=== PATIENT | male | born 1935 | race Caucasian/White ===

== ENCOUNTER 2016-07-29 21:31 | Observation (INO) | payer MEDICARE, OTHER ==
--- NOTE | ~2016-07-29 | CN ---
Consultation Report [facility] [address] [place]. [address] NAME: CED PANG : 35 STATUS : ADM Renata PAT#: [id number] AGE: 80 ADM/REG DATE : 07/30/16 MR#: [id number] REPORT SERV DATE: 07/30/16 DICTATED BY: ROCKY ARZATE DATE: 07/30/16 REPORT STATUS : Draft TRANSCRIBED BY: MODL DATE: 07/30/16 INPATIENT CONSULTATION DATE OF CONSULTATION: 07/30/2016 REASON FOR CONSULTATION: Back pain and right leg pain. HISTORY OF PRESENT ILLNESS: The patient is an 80-year-old gentleman, with complaints of intractable back and lower extremity pain. He states that he started having more severe pain approximately a week ago, and then yesterday or the day before had difficulty with ambulating, and felt that his right leg would give out on weightbearing. He also complains of rather severe right-sided knee pain, for which Dr. Arias is following. REVIEW OF SYSTEMS: He denies chest pain, shortness of breath, and bowel or bladder changes. PHYSICAL EXAMINATION: GENERAL: The patient is healthy appearing. In no acute distress. PSYCH: Alert and oriented x3. Normal mood and affect. Gait was not tested. VASCULAR: No extremity swelling. NEUROLOGIC: Strength in lower extremities was 5/5 for the hip flexors, hamstrings, quadriceps, tibialis anterior, EHL, gastrocsoleus, and peroneals. No focal deficits. Sensation is intact to light touch to bilateral lower extremities. IMAGING: I have reviewed the CT scan, as well as x-rays, he does have L2 through S1 disk disease, and stenosis with nerve compression. ASSESSMENT: Lumbar disk disease and stenosis. PLAN: I discussed various options with the patient. I will order physical therapy. I had offered to perform a lumbar epidural steroid injection. He had a negative experience with one of those in the distant past and was somewhat hesitant, so we will hold off on that and see how he does first with physical therapy. He may need inpatient rehab, if he continues to have significant limitations then an epidural injection would be a possibility. He was also not interested in any surgery at this point. I will follow along as needed. REED/KYLER Rocky Arzate, / [phone] Consultation Report [place] [id number] [address] NAME: CED PANG : 35 STATUS : ADM Renata PAT#: [id number] AGE: 80 ADM/REG DATE : 07/30/16 MR#: [id number] REPORT SERV DATE: 07/30/16 DICTATED BY: ROCKY ARZATE DATE: 07/30/16 REPORT STATUS : Draft TRANSCRIBED BY: KYLER DATE: 07/30/16 CC: MD Davi Pickard M.D.
--- NOTE | ~2016-07-29 | DS ---
Discharge Summary [facility] [address] [place]. [address] NAME: CED PANG : 35 STATUS : ADM Renata PAT#: [id number] AGE: 80 ADM/REG DATE : 07/30/16 MR#: [id number] REPORT SERV DATE: 08/01/16 DICTATED BY: DELMER FRY DATE: 08/01/16 REPORT STATUS : Draft TRANSCRIBED BY: MODL DATE: 08/01/16 ADMISSION DATE: 07/30/2016 DISCHARGE DATE: 08/01/2016 REASON FOR ADMISSION: Right leg weakness and gait abnormality. HPI: Please refer to Dr. Godinez's history and physical dated 07/30/2016 for complete details on the patient's admission. In brief, the patient was admitted to the hospitalist service for right leg weakness with gait abnormality. HOSPITAL COURSE: The patient had an uncomplicated hospital course. The patient had a CT scan of his lumbar spine without contrast, which showed evidence for moderately severe bilateral neural foraminal stenosis, L5 through S1. High-grade central canal stenosis, L4 through L5, L3 through L4, L2 through L3, which are essentially stable from 2013 MRI. The patient had a followup MRI done of his lumbar and thoracic spine, which showed evidence for a now stabilized small to moderate right central herniation T8 through T9, posterior stabilization from T8 through T11. There are osteophytes anteriorly at multiple levels. The MRI of his lumbar spine showed persistent canal stenosis L2 through L5. The neural foramina at L5-S1 demonstrates bony stenosis secondary to herniation, osteophytes, and intermittent irritation to the right or left L5 root, which may present clinically. The patient also complained of some knee pain, so we had a knee x-ray done, which showed right knee prosthesis. No acute abnormality. Dr. Arias was consulted regarding his knee and Dr. Arzate was consulted regarding the patient's spinal issues. Dr. Arzate had offered an epidural steroid injection or surgery and the patient had declined both. Physical Therapy had evaluated the patient and recommended inpatient rehab. The patient had a [facility] for [facility], so we had consulted [facility] and they felt that the patient could not get financial or medical approval, so then we consulted [facility] who had approved the patient on Wednesday, but did not have any beds, so we are waiting for a bed to open up. The patient remained in observation status according to Case Management, and the rn case management had a long discussion with the patient on Wednesday, and given that the fact that the patient was responsible for his bill, he is requesting to go home instead of waiting for a possibility of a bed to open up at [facility]. Over time, the patient has been able to do more and more. He is still using a walker, but he is able to bear weight. He was able to take a shower without any assistance. He is stable for discharge back to home and is requesting outpatient physical therapy at the [facility]. We will make arrangements for that. The patient is not wanting to stay in the hospital any further due to worrisome of a hospital bill, and therefore, we are discharging him at his request. DISCHARGE DIAGNOSES: Right leg weakness with gait abnormality, not resolving; severe lumbar spinal stenosis; thrombocytopenia; hypertension; hypokalemia; obstructive sleep apnea, on CPAP; chronic back pain. PROCEDURES: Include CT scan of the lumbar spine without contrast, MRI of the lumbar spine without contrast, and MRI of the thoracic spine without contrast. Consultation with Dr. Arzate, and consultation with Dr. Arias, Physical Therapy. Discharge Summary [address] [address] NAME: CED PANG : 35 STATUS : ADM Renata PAT#: [id number] AGE: 80 ADM/REG DATE : 07/30/16 MR#: [id number] REPORT SERV DATE: 08/01/16 DICTATED BY: DELMER FRY DATE: 08/01/16 REPORT STATUS : Draft TRANSCRIBED BY: KYLER DATE: 08/01/16 DISCHARGE MEDICATIONS: Include aspirin 81 mg once a day; Cartia XT 120 mg once a day; lisinopril/hydrochlorothiazide 20/25 once a day; simvastatin 40 mg at bedtime; Klonopin 2 mg at bedtime; naproxen p.r.n. pain; Percocet 5/325 every six hours as needed for pain, #20 tablets given. We will make arrangements for outpatient PT this. JACKI Delmer Fry MD / [id number] CC: MD Davi Pickard M.D. John Nash, M.D.
--- NOTE | ~2016-07-29 | HP ---
History And Physical [place] [address] [place]. [address] NAME: CED PANG GIST : 35 STATUS : ADM Renata PAT#: [id number] AGE: 80 ADM/REG DATE : 07/30/16 MR#: [id number] REPORT SERV DATE: 07/30/16 DICTATED BY: CED WALTERS DATE: 07/30/16 REPORT STATUS : Draft TRANSCRIBED BY: MODL DATE: 07/30/16 DATE OF ADMISSION: 07/30/2016 POINT OF ENTRY: [facility] Emergency Department. CHIEF COMPLAINT: Right leg weakness and gait abnormality. HISTORY OF PRESENT ILLNESS: Mr. Pang is an 80-year-old gentleman with a history of hypertension, hyperlipidemia, obstructive sleep apnea, as well as chronic lower back pain secondary to degenerative disc disease and spinal stenosis, who presents to the emergency department today with worsening lower back pain as well as inability to walk secondary to inability to bear weight on his right leg. The patient states that he has had chronic issues with lower back pain, has had multiple lumbar back surgeries for degenerative disc disease as well as spinal stenosis. He states that for the past week he has had worsening of his chronic lower back pain with some sciatic component to it. At approximately 7:30 this evening while walking in his house, his right leg gave out from under him and he fell slowly to the ground. Shortly after this occurred the patient's back pain resolves, and in fact, he is not complaining of any pain at this time whatsoever, but he has continued to have an inability to bear any weight on his right leg secondary to weakness, not to pain or discomfort. Initial evaluation in the emergency department is notable for vitals and labs, otherwise unremarkable. Imaging did not reveal any acute fracture or dislocation. CT scan of the L- spine showed moderate to severe multilevel degenerative disc disease with some moderate to severe narrowing of canal, but no evidence of any cord impingement. Attempts to walk the patient were unsuccessful as again he was unable to bear weight on his right leg whatsoever. He was subsequently admitted to the Hospitalist Service for further evaluation and management. REVIEW OF SYSTEMS: Comprehensive review of systems otherwise negative unless listed in history of present illness. PREVIOUS MEDICAL HISTORY: 1. Chronic lower back pain. 2. Degenerative disc disease and spinal stenosis. 3. Hypertension. 4. Hyperlipidemia. 5. Obstructive sleep apnea, on CPAP. 6. Left thigh mass status post resection, determined to be lipoma. SURGICAL HISTORY: 1. Bilateral total knee. 2. Cholecystectomy. 3. Appendectomy. History And Physical [address] [address] NAME: CED PANG : 35 STATUS : ADM Renata PAT#: [id number] AGE: 80 ADM/REG DATE : 07/30/16 MR#: [id number] REPORT SERV DATE: 07/30/16 DICTATED BY: CED WALTERS DATE: 07/30/16 REPORT STATUS : Draft TRANSCRIBED BY: KYLER DATE: 07/30/16 4. Hernia repair. 5. Multiple lumbar back surgeries. ALLERGIES: NO KNOWN DRUG ALLERGIES. HOME MEDICATIONS: 1. Aspirin 81 mg daily. 2. Klonopin 2 mg q.h.s. 3. Diltiazem 120 mg q.h.s. 4. Lisinopril/hydrochlorothiazide 20/25 mg one tablet q.h.s. 5. Naproxen 500 mg b.i.d. p.r.n. 6. Simvastatin 40 mg q.h.s. SOCIAL HISTORY: Denies any tobacco, alcohol, or illicits. FAMILY MEDICAL HISTORY: Mother with history of stroke. Father with cancer and coronary artery disease. Siblings with lung cancer. LABS AND IMAGIN. White count is 6.0, hemoglobin is 15.0, hematocrit 44.4, and platelet count is 128. 2. Sodium is 147, potassium 3.4, chloride 111, carbon dioxide 25, BUN 29, creatinine 1.26, glucose is 104, and calcium is 9.3. 3. CT scan of the lumbar spine shows moderate to severe multilevel degenerative changes of the lower thoracic and lumbar spine, but degenerative changes are most pronounced at L4- L5 and L5-S1 where there is at least moderate to severe narrowing of the bilateral neural foramina secondary to disc bulge, osteophyte formation, and facet arthropathy. 4. Plain films of the knee and hip per my review shows no acute fracture or dislocation. Formal report is pending. PHYSICAL EXAMINATION: VITAL SIGNS: Temperature is 98.5 degrees Fahrenheit, pulse is 90, respirations 20, saturating 96% on room air, and blood pressure is 148/71. GENERAL: The patient is awake and alert, in no acute distress. Resting comfortably in bed. He is a well-developed, well-nourished, elderly male. HEENT: Atraumatic and normocephalic. Moist mucous membranes. Pupils are equal, round, reactive to light and accommodation. Extraocular eye movements are intact. No scleral icterus. NECK: No jugular venous distention. No carotid bruits. CARDIAC: Regular rate and rhythm. No murmurs or gallops. Normal S1, S2. LUNGS: Clear to auscultation bilaterally. No wheezes, rhonchi, or crackles. ABDOMEN: Obese, soft, nontender, and nondistended. Good bowel sounds. No rebound, guarding, or rigidity. EXTREMITIES: Warm and perfused. No cyanosis, clubbing, or edema. SKIN: Warm and dry. PSYCH: Affect appropriate. NEURO: Alert and oriented x3. Cranial nerves 2 through 12 grossly intact. Speech is normal. Gait is not assessed. History And Physical [address] [address] NAME: CED PANG [facility] : 35 STATUS : ADM Renata PAT#: [id number] AGE: 80 ADM/REG DATE : 07/30/16 MR#: [id number] REPORT SERV DATE: 07/30/16 DICTATED BY: CED WALTERS DATE: 07/30/16 REPORT STATUS : Draft TRANSCRIBED BY: KYLER DATE: 07/30/16 MUSCULOSKELETAL: The patient has intact strength and range of movement in bilateral lower extremities. Intact gross sensation as well. ASSESSMENT AND PLAN: Mr. Pang is an 80-year-old gentleman who presents with a week history of worsening chronic lower back pain status post acute onset of inability to bear any weight on his right leg secondary to weakness with resulting gait abnormality. PROBLEM LIST: 1. Right leg weakness with gait abnormality. 2. Chronic lower back pain. 3. Thrombocytopenia. 4. Hypertension. 5. Hypokalemia. PLAN: 1. Right leg weakness with gait abnormality, unclear etiology as to what would cause the patient to be unable to bear weight on his right leg upon standing as he appears to have intact sensation and gross motor strength as well as cerebellar control of his right lower extremity during my neuro exam while supine on the exam bed. A CT scan of the lumbar spine shows multilevel degenerative disc disease, but no obvious acute etiology of the patient's new symptoms. We will admit the patient to Hospitalist Service. Consult the patient's orthopedic surgeon, Dr. Arias, for assistance. Likely will need to see Orthopedics Spine Surgery as well as we will order a thoracic and lumbar MRI to better visualize his known history of spinal stenosis and degenerative disk disease. Also consult Physical Therapy for evaluation. 2. Chronic lower back pain. The patient now denies any chronic lower back pain whatsoever. Again, follow up Orthopedic Surgical consultation as well as MRI imaging of the back. 3. DVT prophylaxis. Lovenox subcu. CODE STATUS: The patient wished to be full code. JCB/MODL Ced Walters MD / [id number] CC: Beni Robin M.D.
[~2016-07-29 21:31] MED LIST: ADVIL PO; ALEVE220 MG PO; AMOXIL500C PO; ASAB PO; CARDCD120 PO; KLONO2 PO; MULTIPLE VIT PO; VICODINTAB PO; ZESTORETIC1 TA1 PO; ZOCOR20 PO; ZOCOR40 PO
[2016-07-30] MEDS ORDERED: ZOCOR40 PO (02:47)
[2016-07-30] MEDS ORDERED: PRINZIDE PO (02:47)
[2016-07-30] MEDS ORDERED: CARTIA XT120 MG/24 PO (02:48)
[2016-07-30] MEDS ORDERED: NAP500 PO (02:48)
[2016-07-30] MEDS ORDERED: KLONO2 PO (02:49)
[2016-07-30] MEDS ORDERED: ASAB PO (02:49)
[2016-07-30 02:50] LABS: BASOPHILS 0.3 %; BASOPHILS ABSOLUTE 0.02 10/3/uL (0.0-0.16); EOSINOPHILS ABSOLUTE 0.24 10/3/uL (0.0-0.53); HEMATOCRIT 44.4 % (40.0-51.0); IMMATURE GRANULOCYTES 0.2 %; IMMATURE GRANULOCYTES ABSOLUTE 0.01 10/3/uL (0.0-0.11); LYMPHOCYTES 37.9 %; LYMPHOCYTES ABSOLUTE 2.28 10/3/uL (0.67-4.30); MEAN CORPUS HGB CONC 33.8 g/dL (32.0-36.0); MEAN CORPUSCULAR HEMOGLOB 30.3 pg (26.0-34.0); MEAN CORPUSCULAR VOLUME 89.7 fL (80-100); MONOCYTES 5.3 %; MONOCYTES ABSOLUTE 0.32 10/3/uL (0.21-1.20); NEUTROPHILS 52.3 %; NEUTROPHILS ABSOLUTE 3.15 10/3/uL (2.02-8.40); PLATELET COUNT 128 10/3/uL (150-400); RBC DISTRIBUTION WIDTH 13.5 % (12.0-16.0); RED CELL COUNT 4.95 10/6/uL (4.7-6.1)
[2016-07-30 02:51] LABS: MANUAL DIFF NO %
[2016-07-30 03:02] LABS: BUN (BLOOD UREA NITROGEN) 29 MG/DL (6-23); CALCIUM, SERUM 9.3 MG/DL (8.5-10.4); CHLORIDE, SERUM 111 MMOL/L (96-112); CO2 (CARBON DIOXIDE) 25 MMOL/L (24-34); CREATININE 1.26 MG/DL (0.70-1.30); GFR AFRICAN AMERICAN 62 ML/MIN (>=60); GFR NON AFRICAN AMERICAN 54 ML/MIN (>=60); GLUCOSE, SERUM 104 MG/DL (60-99); POTASSIUM, SERUM 3.4 MMOL/L (3.5-5.3); SODIUM, SERUM 147 MMOL/L (135-148)
[2016-07-30 03:08] LABS: BAND NEUTROPHILS 2 %; EOSINOPHILS 1 %; EOSINOPHILS ABSOLUTE (CALC) 0.06 10/3/uL (0.0-0.53); ER DIFF TAT 0 Hrs 24 Mins; LYMPHOCYTES 37 %; LYMPHOCYTES ABSOLUTE (CALC) 2.22 10/3/uL (0.67-4.30); MONOCYTES 5 %; NEUTROPHILS ABSOLUTE (CALC) 3.42 10/3/uL (2.02-8.40); PLATELET ESTIMATE DEC (ADEQUATE); RBC MORPHOLOGY NORM (NORMAL); SEGMENTED NEUTROPHIL (0) 55 %; TOTAL NUCLEATED CELLS 100
[2016-07-31 07:22] LABS: CALCIUM, SERUM 8.7 MG/DL (8.5-10.4); CHLORIDE, SERUM 111 MMOL/L (96-112); CO2 (CARBON DIOXIDE) 27 MMOL/L (24-34); CREATININE 1.49 MG/DL (0.70-1.30); GFR AFRICAN AMERICAN 51 ML/MIN (>=60); GFR NON AFRICAN AMERICAN 44 ML/MIN (>=60); POTASSIUM, SERUM 3.9 MMOL/L (3.5-5.3); SODIUM, SERUM 145 MMOL/L (135-148)
[2016-07-31 07:23] LABS: BUN (BLOOD UREA NITROGEN) 24 MG/DL (6-23); GLUCOSE, SERUM 131 MG/DL (60-99)
[2016-08-01] MEDS ORDERED: PERCOCET1 TAB PO (18:12)
== END 2016-08-01 19:22 | disposition home or self-care (01) ==
LOC: ER 21:31 → 4SO 07-30 03:33
PROVIDERS: Internal Medicine; Specialist
DX: R53.1 Weakness (principal); R26.9 Unspecified abnormalities of gait and mobility; M48.00 Spinal stenosis, site unspecified; M51.36 Other intervertebral disc degeneration, lumbar region; G89.29 Other chronic pain; I10 Essential (primary) hypertension; E78.5 Hyperlipidemia, unspecified; G47.33 Obstructive sleep apnea (adult) (pediatric); E87.6 Hypokalemia; D69.6 Thrombocytopenia, unspecified; Z90.49 Acquired absence of other specified parts of digestive tract; Z96.653 Presence of artificial knee joint, bilateral; Z79.82 Long term (current) use of aspirin; Z79.899 Other long term (current) drug therapy; Z98.890 Other specified postprocedural states; Z82.3 Family history of stroke; Z82.49 Family history of ischemic heart disease and other diseases of the circulatory system; Z80.1 Family history of malignant neoplasm of trachea, bronchus and lung; Z98.41 Cataract extraction status, right eye; Z98.42 Cataract extraction status, left eye; Z90.89 Acquired absence of other organs
CPT/HCPCS: 72100; 72131; 72146; 72148; 72157; 72158; 73502-RT; 73560-RT; 80048; 85025; 96372; 96374; 97110-GP; 97116-GP; 97161-GP; 99285; A9270-GY; G0378; G8978-CK-GP; G8979-CJ-GP; J2405